=== PATIENT | female | born 1990 | race Caucasian/White ===

== ENCOUNTER 2016-12-31 18:45 | Emergency (ER) | payer MEDICAID, OTHER ==
[2016-12-31 21:34] LABS: Hematocrit 43 % (35-47); Hemoglobin 14.3 g/dl (12.0-16.0); Mean Corpuscular HGB Conc 34 g/dl (31-36); Mean Corpuscular Hemoglobin 31 pg (27-31); Mean Corpuscular Volume 92 fL (80-97); Mean Platelet Volume 9 um3 (7.4-10.4); Red Blood Count 4.62 10^6/ul (4.0-5.4); Red Cell Distribution Width 14 % (10.5-15); White Blood Count 8.4 10^3/ul (3.5-10.8)
[2016-12-31 21:42] LABS: Urine Bacteria Absent (Absent); Urine Bilirubin Negative (Negative); Urine Glucose Negative (Negative); Urine Nitrite Negative (Negative)
[2016-12-31 21:49] LABS: ALT 12 U/L (7-52); AST 13 U/L (13-39); Albumin 4.1 g/dL (3.2-5.2); Alkaline Phosphatase 35 U/L (34-104); Anion Gap 5 mmol/L (2-11); BUN/Creatinine Ratio 9.7 (8-20); Blood Urea Nitrogen 7 mg/dL (6-24); C Reactive Protein < 1.00 mg/L (< 5.00); CO2 Carbon Dioxide 26 mmol/L (22-32); Calcium 9.1 mg/dL (8.6-10.3); Chloride 108 mmol/L (101-111); EGFR Non-African American 99.5 (>60); Globulin 2.4 g/dL (2-4); Glucose 83 mg/dL (70-100); Lipase 12 U/L (11.0-82.0); Potassium 3.7 mmol/L (3.5-5.0); Sodium 139 mmol/L (133-145); Total Protein 6.5 g/dL (6.4-8.9)
[2016-12-31] MEDS ORDERED: Lidocaine 2% VISCOUS* 15 ML UDC PO ONE (22:03)
[2016-12-31] MEDS ORDERED: Al Hydrox/Mg Hydrox/Simet LIQ* 30 ML UDC PO ONE (22:03)
--- NOTE | 2016-12-31 22:32 | ED ---
Vinicius Amanda Thomas, scribed for Vikas Celaya MD on 12/31/16 at 2208 . Abdominal Pain/Female - HPI Summary HPI Summary: The pt is a 26 y/o F presenting to the ED c/o abd pain that began today at 18: 00. The pt rates her pain 4/10 and describes her pain as a pressure in her L side. Her pain was not alleviated by rest. She additionally c/o bloating, intermittent lightheadedness, dizziness, palpitations (characterized as "racing heart"), and nausea. She denies vomiting, diarrhea, and fever. Her dizziness and palpitations began when she was smoking a cigarette. - History of Current Complaint Chief Complaint: EDAbdPain Stated Complaint: ABD PAIN/BLOATING,NAUSEA Time Seen by Provider: 12/31/16 22:00 Hx Obtained From: Patient Onset/Duration: Sudden Onset, Lasting Hours - began 18:00 today, Still Present Timing: Intermittent Episode Lasting Severity Currently: Mild Pain Intensity: 4 Pain Scale Used: 0-10 Numeric Location: Other - L-sided Character: Other: - POS: "pressure" Aggravating Factor(s): Nothing Alleviating Factor(s): Nothing, Other: - NEG: rest Associated Signs and Symptoms: Positive: Nausea, Other: - POS: bloatedness, intermittent lightheadedness, dizziness, palpitations (characterized as "racing heart"). Negative: Fever, Vomiting, Diarrhea Allergies/Adverse Reactions: Allergies Allergy/AdvReac Type Severity Reaction Status Date / Time No Known Allergies Allergy Verified 12/31/16 19:13 PMH/Surg Hx/FS Hx/Imm Hx Sensory History: Denies: Hx Legally Blind, Hx Hearing Aid EENT History: Denies: Hx Deafness Infectious Disease History: No Infectious Disease History: Denies: Traveled Outside the [place] in Last 30 Days - Family History Known Family History: Positive: Diabetes, Other - POS: glaucoma - Social History Alcohol Use: None Substance Use Type: Reports: None Smoking Status (MU): Never Smoked Tobacco Review of Systems Constitutional: Negative Negative: Fever Eyes: Negative ENT: Negative Positive: Palpitations - intermittent Respiratory: Negative Positive: Abdominal Pain - L-sided, Nausea, Other - POS: bloating. Negative: Vomiting, Diarrhea Genitourinary: Negative Musculoskeletal: Negative Skin: Negative Neurological: Other - POS: dizziness Psychological: Normal All Other Systems Reviewed And Are Negative: Yes Physical Exam Triage Information Reviewed: Yes Vital Signs On Initial Exam: Initial Vitals Temp Pulse Resp BP Pulse Ox 98.3 F 80 16 124/58 100 12/31/16 19:10 12/31/16 19:10 12/31/16 19:10 12/31/16 19:10 12/31/16 19:10 Vital Signs Reviewed: Yes Appearance: Positive: Well-Appearing, No Pain Distress Skin: Positive: Warm Head/Face: Positive: Normal Head/Face Inspection Eyes: Positive: SIDRA ENT: Positive: Hearing grossly normal Neck: Positive: Supple Cardiovascular: Positive: RRR Abdomen Description: Positive: Nontender, Soft Bowel Sounds: Positive: Present Musculoskeletal: Positive: Strength/ROM Intact Neurological: Positive: Alert, Oriented to Person Place, Time Psychiatric: Positive: Affect/Mood Appropriate - Oni Coma Scale Coma Scale Total: 15 Diagnostics - Vital Signs Vital Signs Temp Pulse Resp BP Pulse Ox 12/31/16 21:50 57 101/58 98 12/31/16 21:04 98.6 F 66 16 98/56 100 12/31/16 20:35 98.6 F 68 16 96/56 100 12/31/16 19:10 98.3 F 80 16 124/58 100 - Laboratory Lab Results: Lab Results 12/31/16 12/31/16 12/31/16 Range/Units 21:20 21:20 21:20 WBC 8.4 (3.5-10.8) 10^3/ul RBC 4.62 (4.0-5.4) 10^6/ul Hgb 14.3 (12.0-16.0) g/dl Hct 43 (35-47) % MCV 92 (80-97) fL MCH 31 (27-31) pg MCHC 34 (31-36) g/dl RDW 14 (10.5-15) % Plt Count 199 (150-450) 10^3/ul MPV 9 (7.4-10.4) um3 Neut % (Auto) 52.8 (38-83) % Lymph % (Auto) 36.6 (25-47) % [place] % (Auto) 6.9 (1-9) % Eos % (Auto) 3.0 (0-6) % Baso % (Auto) 0.7 (0-2) % Absolute Neuts (auto) 4.4 (1.5-7.7) 10^3/ul Absolute Lymphs (auto) 3.1 (1.0-4.8) 10^3/ul Absolute Monos (auto) 0.6 (0-0.8) 10^3/ul Absolute Eos (auto) 0.3 (0-0.6) 10^3/ul Absolute Basos (auto) 0.1 (0-0.2) 10^3/ul Absolute Nucleated RBC 0.01 10^3/ul Nucleated RBC % 0.1 Sodium 139 (133-145) mmol/L Potassium 3.7 (3.5-5.0) mmol/L Chloride 108 (101-111) mmol/L Carbon Dioxide 26 (22-32) mmol/L Anion Gap 5 (2-11) mmol/L BUN 7 (6-24) mg/dL Creatinine 0.72 (0.51-0.95) mg/dL Est GFR ( Amer) 128.0 (>60) Est GFR (Non-Af Amer) 99.5 (>60) BUN/Creatinine Ratio 9.7 (8-20) Glucose 83 (70-100) mg/dL Lactic Acid (0.5-2.0) mmol/L Calcium 9.1 (8.6-10.3) mg/dL Total Bilirubin 0.60 (0.2-1.0) mg/dL AST 13 (13-39) U/L ALT 12 (7-52) U/L Alkaline Phosphatase 35 (34-104) U/L C-Reactive Protein < 1.00 (< 5.00) mg/L Total Protein 6.5 (6.4-8.9) g/dL Albumin 4.1 (3.2-5.2) g/dL Globulin 2.4 (2-4) g/dL Albumin/Globulin Ratio 1.7 (1-3) Lipase 12 (11.0-82.0) U/L Urine Color Yellow Urine Appearance Clear Urine pH 6.0 (5-9) Ur Specific [place] 1.010 (1.010-1.030) Urine Protein Negative (Negative) Urine Ketones Negative (Negative) Urine Blood 1+ H (Negative) Urine Nitrate Negative (Negative) Urine Bilirubin Negative (Negative) Urine Urobilinogen Negative (Negative) Ur Leukocyte Esterase Negative (Negative) Urine WBC (Auto) Trace(0-5/hpf) (Absent) Urine RBC (Auto) Absent (Absent) Ur Squamous Epith Cells Present H (Absent) Urine Bacteria Absent (Absent) Urine Glucose Negative (Negative) 12/31/16 Range/Units 21:20 WBC (3.5-10.8) 10^3/ul RBC (4.0-5.4) 10^6/ul Hgb (12.0-16.0) g/dl Hct (35-47) % MCV (80-97) fL MCH (27-31) pg MCHC (31-36) g/dl RDW (10.5-15) % Plt Count (150-450) 10^3/ul MPV (7.4-10.4) um3 Neut % (Auto) (38-83) % Lymph % (Auto) (25-47) % [place] % (Auto) (1-9) % Eos % (Auto) (0-6) % Baso % (Auto) (0-2) % Absolute Neuts (auto) (1.5-7.7) 10^3/ul Absolute Lymphs (auto) (1.0-4.8) 10^3/ul Absolute Monos (auto) (0-0.8) 10^3/ul Absolute Eos (auto) (0-0.6) 10^3/ul Absolute Basos (auto) (0-0.2) 10^3/ul Absolute Nucleated RBC 10^3/ul Nucleated RBC % Sodium (133-145) mmol/L Potassium (3.5-5.0) mmol/L Chloride (101-111) mmol/L Carbon Dioxide (22-32) mmol/L Anion Gap (2-11) mmol/L BUN (6-24) mg/dL Creatinine (0.51-0.95) mg/dL Est GFR ( Amer) (>60) Est GFR (Non-Af Amer) (>60) BUN/Creatinine Ratio (8-20) Glucose (70-100) mg/dL Lactic Acid 0.8 (0.5-2.0) mmol/L Calcium (8.6-10.3) mg/dL Total Bilirubin (0.2-1.0) mg/dL AST (13-39) U/L ALT (7-52) U/L Alkaline Phosphatase (34-104) U/L C-Reactive Protein (< 5.00) mg/L Total Protein (6.4-8.9) g/dL Albumin (3.2-5.2) g/dL Globulin (2-4) g/dL Albumin/Globulin Ratio (1-3) Lipase (11.0-82.0) U/L Urine Color Urine Appearance Urine pH (5-9) Ur Specific [place] (1.010-1.030) Urine Protein (Negative) Urine Ketones (Negative) Urine Blood (Negative) Urine Nitrate (Negative) Urine Bilirubin (Negative) Urine Urobilinogen (Negative) Ur Leukocyte Esterase (Negative) Urine WBC (Auto) (Absent) Urine RBC (Auto) (Absent) Ur Squamous Epith Cells (Absent) Urine Bacteria (Absent) Urine Glucose (Negative) Result Diagrams: 12/31/16 21:20 12/31/16 21:20 Lab Statement: Any lab studies that have been ordered have been reviewed, and results considered in the medical decision making process. Re-Evaluation - Re-Evaluation First Eval Re-Evaluation Time: 22:30 Change: Improved Abdominal Pain Fem Course/Dx - Diagnoses Provider Diagnoses: Abdominal pain, GERD (gastroesophageal reflux disease) Discharge - Discharge Plan Condition: Stable Disposition: HOME Prescriptions: Famotidine TAB* [Pepcid 20 MG TAB*] 20 mg PO BID #20 tab Patient Education Materials: Gastroesophageal Reflux Disease (ED), Abdominal Pain (ED) Referrals: Dary Saldana MD [Primary Care Provider] - 3 Days The documentation as recorded by the Vinicius guzman Thomas accurately reflects the service I personally performed and the decisions made by Belia arias David, MD.
[2016-12-31 22:48] VITALS: BP 99/72
== END 2016-12-31 22:54 | disposition home or self-care (01) ==
LOC: ED 18:45
DX: R10.9 Unspecified abdominal pain (principal); K21.9 Gastro-esophageal reflux disease without esophagitis; R11.0 Nausea; R42 Dizziness and giddiness; R00.2 Palpitations
CPT/HCPCS: 36415; 80053; 81003; 81015; 83605; 83690; 85025; 86140; 99283; A9270-GY

== ENCOUNTER 2017-05-30 16:14 | Emergency (ER) | payer MEDICAID ==
[2017-05-30 17:21] VITALS: BP 114/58
--- NOTE | 2017-05-30 17:51 | UC ---
Dental HPI - HPI Summary HPI Summary: 27F presents with dental pain for a month. She states two weeks ago she finished a course of amoxicillin. She states it helped for 6 days but on the sixth day the pain returned. She has been taking ibuprofen and Tylenol. She has not established care with a dentist yet. She denies any fevers, difficulty swallowing, chest pain, or SOB. she has three teeth that are chipped. <Dary Badillo - Last Filed: 05/30/17 18:12> <Sandy Melgar - Last Filed: 05/30/17 20:03> - History of Current Complaint Chief Complaint: UCDentalProblem Stated Complaint: TEETH COMPLAINT Time Seen by Provider: 05/30/17 17:25 - Allergies/Home Medications Allergies/Adverse Reactions: Allergies Allergy/AdvReac Type Severity Reaction Status Date / Time No Known Allergies Allergy Verified 12/31/16 19:13 Home Medications: Home Medications Ibuprofen [Advil] 800 mg PO 05/30/17 [History] PMH/Surg Hx/FS Hx/Imm Hx Endocrine History: Other Other Endocrine History: no DM Cardiovascular History: Other Other Cardiovascular History: no HTN - Surgical History Surgical History: Yes Surgery Procedure, Year, and Place: t&a at age 15, - Family History Known Family History: Positive: Diabetes, Other - POS: glaucoma - Social History Alcohol Use: Rare Substance Use Type: Marijuana Substance Use Comment - Amount & Last Used: daily Smoking Status (MU): Light Every Day Tobacco Smoker Type: Cigarettes - Immunization History Most Recent Influenza Vaccination: last year Most Recent Tetanus Shot: 01/15 Most Recent Pneumonia Vaccination: n/a <Dary Badillo - Last Filed: 05/30/17 18:12> Review of Systems ENT: Dental Pain Respiratory: Negative Cardiovascular: Negative All Other Systems Reviewed And Are Negative: Yes <Dary Badillo - Last Filed: 05/30/17 18:12> Physical Exam Triage Information Reviewed: Yes Appearance: Well-Appearing Vital Signs: Initial Vital Signs Temp 98.4 F 05/30/17 17:15 Pulse 69 05/30/17 17:15 Resp 18 05/30/17 17:15 BP 114/58 05/30/17 17:15 Pulse Ox 99 05/30/17 17:15 Eyes: Positive: Conjunctiva Clear ENT: Positive: Normal ENT inspection, Pharynx normal, TMs normal Dental: Positive: Percussion Tenderness @ - 32 Neck: Positive: Supple, Nontender, No Lymphadenopathy Respiratory: Positive: Lungs clear, Normal breath sounds Cardiovascular: Positive: RRR Musculoskeletal Exam: Normal Neurological Exam: Normal Psychological Exam: Normal Skin Exam: Normal <Dary Badillo - Last Filed: 05/30/17 18:12> Vital Signs: Initial Vital Signs Temp 98.4 F 05/30/17 17:15 Pulse 69 05/30/17 17:15 Resp 18 05/30/17 17:15 BP 114/58 05/30/17 17:15 Pulse Ox 99 05/30/17 17:15 <Sandy Melgar - Last Filed: 05/30/17 20:03> Dental Complaint Course/Dx - Course Course Of Treatment: 27F presents with dental pain for a month. She states two weeks ago she finished a course of amoxicillin. She states it helped for 6 days but on the sixth day the pain returned. She has been taking ibuprofen and Tylenol. She has not established care with a dentist yet. She denies any fevers , difficulty swallowing, chest pain, or SOB. she has three teeth that are chipped. on exam has tenderness 32, no abscess felt. will treat with clindamycin and naproxen for pain. patient understand and agrees with plan. - Differential Dx/Diagnosis Differential Diagnosis/Dx: Dental Abscess, Dental Caries, Fractured Tooth Provider Diagnoses: dental infection <Dary Badillo - Last Filed: 05/30/17 18:12> Discharge <Dary Badillo - Last Filed: 05/30/17 18:12> <Sandy Melgar - Last Filed: 05/30/17 20:03> - Discharge Plan Condition: Good Disposition: HOME Prescriptions: Chlorhexidine MOUTHWASH 0.12%* [Peridex Mouth Wash 0.12%*] 15 ml MT BID #1 btl Clindamycin Cap(NF) [Clindamycin Cap 300 mg Cap(NF)] 300 mg PO TID #30 cap Naproxen TAB* [Naprosyn 250 mg TAB*] 250 mg PO Q6H PRN #20 tab PRN Reason: Pain Patient Education Materials: Toothache (ED) Referrals: Dary Saldana MD [Primary Care Provider] - Additional Instructions: Take antibiotics: three times a day for 10 days Use naproxen every 6 hours and alternate with tyenlol every 6 hours Use 15ml twice a day swish and spit of mouth wash Avoid hard, crunchy food until seen by dentist Return to ED if develop fever, shortness of breath, pain with eye movement or swelling around eye Establish care with dentist as soon as possible Images Dental: 1 - dental pain <Dary Badillo - Last Filed: 05/30/17 18:12> Attestation Statement User Type: Provider - I was available for consult. This patient was seen by the [facility]. The patient was not presented to, seen by, or examined by me. -Tom <Sandy Melgar - Last Filed: 05/30/17 20:03>
== END 2017-05-30 18:00 | disposition home or self-care (01) ==
LOC: UCEAST 16:14
DX: K04.7 Periapical abscess without sinus (principal); F12.90 Cannabis use, unspecified, uncomplicated; F17.210 Nicotine dependence, cigarettes, uncomplicated
CPT/HCPCS: 99212; G0463

== ENCOUNTER 2018-03-09 21:33 | Emergency (ER) | payer SELFPAY ==
[2018-03-09 21:48] VITALS: BP 109/67
--- NOTE | 2018-03-09 22:10 | UC ---
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 He began to experience a pounding in her chest. She felt dizzy and lightheaded. She came directly here for evaluation. She states that she had had similar episodes over the past 2 years. These spells are brought on when she feels hot. She has had multiple tests performed. No answer has been found to date to help explain her symptoms. She currently feels markedly improved now that she is out of the hot atmosphere of the kitchen. Other than feeling anorexic she feels basically back to normal. - History Of Current Complaint Chief Complaint: UCDizziness Stated Complaint: DIZZINESS Time Seen by Provider: 03/09/18 21:36 Hx Obtained From: Patient Hx Last Menstrual Period: 03/04/18 Onset/Duration: Gradual Onset, Lasting Minutes Timing: Constant Severity Initially: Severe Severity Currently: Mild Pain Intensity: 2 Pain Scale Used: 0-10 Numeric Character: Lightheaded Alleviating Factor(s): Other - getting out of the kitchen Associated Signs And Symptoms: Positive: Chest Pain, Palpitations. Negative: Nausea, Vomiting, Diaphoresis, Tinnitus, SOB, Unsteady Gait, Visual Changes, Decreased Oral Intake, Change In Medication, Change In Diet, OTC Medications - Allergies/Home Medications Allergies/Adverse Reactions: Allergies Allergy/AdvReac Type Severity Reaction Status Date / Time No Known Allergies Allergy Verified 03/09/18 21:48 Home Medications: Home Medications NK [No Home Medications Reported] 03/09/18 [History Confirmed 03/09/18] PMH/Surg Hx/FS Hx/Imm Hx Previously Healthy: Yes - Surgical History Surgical History: Yes Surgery Procedure, Year, and Place: t&a at age 15, , tubal ligation - Family History Known Family History: Positive: Cardiac Disease, Hypertension, Diabetes, Other - POS: glaucoma - Social History Alcohol Use: Rare Substance Use Type: Marijuana Substance Use Comment - Amount & Last Used: daily Smoking Status (MU): Light Every Day Tobacco Smoker Type: Cigarettes - Immunization History Most Recent Influenza Vaccination: last year Most Recent Tetanus Shot: 01/15 Most Recent Pneumonia Vaccination: n/a Review of Systems Constitutional: Negative Skin: Negative Eyes: Negative ENT: Negative Respiratory: Negative Cardiovascular: Palpitations Gastrointestinal: Negative Genitourinary: Negative Motor: Negative Neurovascular: Negative Musculoskeletal: Negative Neurological: Negative Psychological: Negative Is Patient Immunocompromised?: No All Other Systems Reviewed And Are Negative: Yes Physical Exam Triage Information Reviewed: Yes Appearance: Well-Appearing, No Pain Distress, Well-Nourished Vital Signs: Initial Vital Signs Temp 98.9 F 03/09/18 21:43 Pulse 66 03/09/18 21:43 Resp 18 03/09/18 21:43 BP 109/67 03/09/18 21:43 Pulse Ox 97 03/09/18 21:43 Vital Signs Reviewed: Yes Eyes: Positive: Conjunctiva Clear ENT: Positive: Normal ENT inspection. Negative: Nasal congestion, Nasal drainage, Trismus, Muffled voice, Hoarse voice Neck: Positive: Supple, Nontender, No Lymphadenopathy Respiratory: Positive: Lungs clear, Normal breath sounds, No respiratory distress, No accessory muscle use Cardiovascular: Positive: RRR, No Murmur Bowel Sounds: Positive: Present Musculoskeletal: Positive: ROM Intact, No Edema Neurological: Positive: Alert Psychological Exam: Normal Skin Exam: Normal Diagnostics - Laboratory Diagnostic Studies Completed/Ordered: blood sugar in 90s - EKG Cardiac Rate: NL Cardiac Rhythm: Sinus: Normal Ectopy: None ST Segment: Normal Dizzy Course/Dx - Differential Dx/Diagnosis Provider Diagnoses: palpitations/dizziness of uncertain etiology Discharge - Sign-Out/Discharge Documenting (check all that apply): Patient Departure All imaging exams completed and their final reports reviewed: No Studies - Discharge Plan Condition: Stable Disposition: HOME Patient Education Materials: Dizziness (ED), Heart Palpitations (DC) Forms: *Work Release Referrals: Dary Saldana MD [Primary Care Provider] - 1 Day (call your MD in AM. discuss your symptoms and need for follow up and further studies if warrented) - Billing Disposition and Condition Condition: STABLE Disposition: Home
== END 2018-03-09 22:34 | disposition home or self-care (01) ==
LOC: UCEAST 21:33
DX: R00.2 Palpitations (principal); R42 Dizziness and giddiness; Z82.49 Family history of ischemic heart disease and other diseases of the circulatory system; Z83.3 Family history of diabetes mellitus; F17.210 Nicotine dependence, cigarettes, uncomplicated
CPT/HCPCS: 93005; 99211; G0463